=== PATIENT | female | born 1960 | race Caucasian/White ===

== ENCOUNTER 2022-08-02 14:05 | Outpatient (CLI) | payer OTHER ==
--- NOTE | 2022-08-06 12:55 | Mammography Report ---
BILATERAL DIGITAL SCREENING MAMMOGRAM 3D/2D: 08/02/2022 CLINICAL: Routine screening. Comparison is made to exams dated: 05/17/2020 mammogram and 05/03/2020 mammogram - [facility]. There are scattered areas of fibroglandular density in both breasts (category b / 25%-50% glandular t issue). No significant masses, calcifications, or other findings are seen in either breast. There has been no significant interval change. IMPRESSION: NEGATIVE There is no mammographic evidence of malignancy. A 1 year screening mammogram is recommended. Based on the Tyrer Cuzick model (a risk assessment model) the patients lifetime risk is 6.9% and her 10 year risk is 2.9%. According to the ACR, ACS, and NCCN guidelines, an annual breast MRI exam tika g with mammogram is recommended if the patients lifetime risk is 20% or greater. This exam was interpreted at Station ID: [id number]. NOTE: For mammograms, a report in lay terms will be sent to the patient. Approximately 15% of breast malignancies will not be visualized mammographically. In the management of a palpable breast mass, a negative mammogram must not discourage biopsy of a clinically suspicious lesion. Electronically Signed By: Jose Miguel cisneros/sami:08/05/2022 17:56:39 letter sent: No_Letter ACR BI-RADS Category 1: Negative 3341F PARENCHYMAL PATTERN: (A) - The breast(s) demonstrate(s) scattered fibroglandular densities. BI-RADS CATEGORY: (1) - 1 Mammogram [id number] 1 year screening LATERALITY: (B)
== END 2022-08-02 14:06 | disposition home or self-care (01) ==
LOC: DI 14:05
PROVIDERS: ATTEND Internal Medicine
DX: Z12.31 Encounter for screening mammogram for malignant neoplasm of breast (principal)

== ENCOUNTER 2022-08-02 14:05 | Outpatient (CLI) | payer OTHER ==
--- NOTE | 2022-08-02 16:48 | XRAY Report ---
PROCEDURE: Knee 3 View RT INDICATIONS: PAIN IN RIGHT KNEE TECHNIQUE: 3 views of the right knee(s) were acquired. COMPARISON: None. FINDINGS: Bones: No fractures or dislocations. No suspicious bony lesions. Moderate tricompartmental periar ticular osteophyte formation. Severe medial compartment narrowing. Soft tissues: No knee joint effusion. No suspicious soft tissue calcifications or masses. IMPRESSION: Osteoarthritis with medial compartment narrowing. No acute fracture. No osseous lesion. If symptoms a nd/or clinical suspicion for pathology continue, further assessment with repeat plain films, or advan quique imaging (e.g., CT, MRI, or bone scan) is recommended for further assessment. Reviewed by: Jono Domingo MD on 08/02/2022 4:47 PM PDT Approved by: Jono Domingo MD on 08/02/2022 4:47 PM PDT Station ID: [id number]
== END 2022-08-02 14:06 | disposition home or self-care (01) ==
LOC: DI 14:05
PROVIDERS: ATTEND Internal Medicine
DX: M17.11 Unilateral primary osteoarthritis, right knee (principal)

== ENCOUNTER 2022-09-09 08:00 | Outpatient (CLI) | payer OTHER ==
--- NOTE | 2022-09-09 14:58 | XRAY Report ---
PROCEDURE: Knee 3 View RT INDICATIONS: RIGHTK NEE PAIN TECHNIQUE: 3 views of the right knee(s) were acquired. No lateral view was acquired. COMPARISON: 08/02/2022 FINDINGS: Bones: No acute fracture or dislocation. Chronic, moderate medial compartment joint space loss and m ild medial and patellofemoral compartment osteophytosis. Soft tissues: . No suspicious soft tissue calcifications or masses. IMPRESSION: 1.No visible subacute fracture. 2. Moderate medial and mild patellofemoral compartment osteoarthritic changes, stable compared to the prior study. Reviewed by: Triny Dubon MD on 09/09/2022 1:57 PM OZZIE Approved by: Triny Dubon MD on 09/09/2022 1:57 PM OZZIE Station ID: [id number]
== END 2022-09-09 23:59 | disposition home or self-care (01) ==
LOC: DI.WOS 08:00
PROVIDERS: ATTEND Physician Assistant Surgical
DX: M17.11 Unilateral primary osteoarthritis, right knee (principal)

== ENCOUNTER 2022-11-29 12:32 | Outpatient (CLI) | payer OTHER ==
--- NOTE | 2022-11-29 16:11 | Ultrasound Report ---
PROCEDURE: Abdomen Limited INDICATIONS: LUMP ON SIDE TECHNIQUE: Real-time focused scanning was performed of the abdomen, with image documentation. COMPARISONS: None. FINDINGS: Ultrasound was performed in the area of interest. In the area of interest, there is a 3.7 x 3.3 x 1.7 cm isoechoic subcutaneous mass, correlating with the palpable abnormality. It is most likely a lipom a. IMPRESSION: 1. The palpable abnormality correlates with a lipoma. If there is focal pain/tenderness or rapid grow th, a liposarcoma is a differential diagnosis, and CT or MRI would be indicated for further evaluatio n. Reviewed by: Jasmyn Wen MD on 11/29/2022 4:10 PM PDT Approved by: Jasmyn Wen MD on 11/29/2022 4:10 PM PDT Station ID: [id number]
--- NOTE | 2022-11-29 16:20 | Ultrasound Report ---
PROCEDURE: Pelvic w/Transvaginal INDICATIONS: ABN VAG BLEED, LUMP ON SIDE TECHNIQUE: Real-time scanning was performed of the pelvic organs, with image documentation. Additional endovagi nal scanning was necessary due to incomplete visualization of the adnexal and endometrial structures by transabdominal scanning. COMPARISON: None. FINDINGS: Uterus: Uterus is anteverted and measuring 12.6 x 5.2 x 6.9 cm. The myometrium is heterogeneous. T he endometrium measures 1.8.4 mm in combined thickness. Ovaries: The right ovary measures 3.1 x 2.1 x 1.8 cm, with a calculated ovarian volume of 5.9 cc. T he left ovary measures 3.9 x 2.9 x 3.3 cm, with a calculated ovarian volume of 19.6 cc. The ovaries have a normal sonographic appearance. There is a 1.5 x 1.8 x 1.6 m cyst in the right ovary. A 2.1 x 2 .7 x 2.5 cm cyst is seen in the left ovary. Less than 12 follicles can be seen in each ovary. No adn exal masses are seen. No cystic lesions measuring greater than 3 cm. Other: No pathologic free abdominal or pelvic fluid. IMPRESSION: 1. Thickened endometrium. In this patient with postmenopausal bleeding, endometrial cancer needs to b e excluded. Recommend endometrial sampling. 2. Heterogeneous myometrium. This finding can be associated with adenomyosis. 3. Bilateral ovarian cysts. Recommend follow-up ultrasound. Reviewed by: Jasmyn Wen MD on 11/29/2022 4:18 PM PDT Approved by: Jasmyn eWn MD on 11/29/2022 4:18 PM PDT Station ID: [id number]
== END 2022-11-29 12:33 | disposition home or self-care (01) ==
LOC: DI 12:32
PROVIDERS: ATTEND Internal Medicine
DX: N93.9 Abnormal uterine and vaginal bleeding, unspecified (principal); R93.89 Abnormal findings on diagnostic imaging of other specified body structures; N83.202 Unspecified ovarian cyst, left side; N83.201 Unspecified ovarian cyst, right side; L98.8 Other specified disorders of the skin and subcutaneous tissue

== ENCOUNTER 2023-02-18 08:45 | Outpatient (CLI) | payer OTHER ==
--- NOTE | 2023-02-18 14:00 | XRAY Report ---
PROCEDURE: Knee 4 View LT INDICATIONS: LEFT KNEE PAIN TECHNIQUE: 3 views of the knee was obtained. COMPARISON: None FINDINGS: Bones: No fractures or dislocations. No suspicious bony lesions. Moderate medial compartment joint space narrowing without remodeling. Patellofemoral joint space narrowing noted as well. No joint effu danni. Soft tissues: No knee joint effusion. No suspicious soft tissue calcifications or masses. IMPRESSION: Moderate joint space and narrowing without osteophyte, medial compartment and patellofemoral joint. Reviewed by: Jeff Le MD on 02/18/2023 12:59 PM [place] Approved by: Jeff Le MD on 02/18/2023 12:59 PM [place] Station ID: [id number]
== END 2023-02-18 23:59 | disposition home or self-care (01) ==
LOC: DI.WOS 08:45
PROVIDERS: ATTEND Physician Assistant Surgical
DX: M17.12 Unilateral primary osteoarthritis, left knee (principal)

== ENCOUNTER 2023-07-31 08:29 | Day surgery (SDC) | payer OTHER ==
[2023-07-31] MEDS: ACETAMINOPHEN 325 MG TABLET PO ONE (08:50)
--- NOTE | 2023-07-31 09:08 | ANESTHESIA ---
Pre-Anesthesia VS, & Labs - Diagnosis thickened endometrium - Procedure hysteroscopy D&C Vital Signs: Temp Pulse Resp BP Pulse Ox O2 Flow Rate 36.4 C L 82 18 134/76 H 98 07/31/23 08:54 07/31/23 08:54 07/31/23 08:54 07/31/23 08:54 07/31/23 08:54 Height: 5 ft 5 in Weight (kg): 160 kg Body Mass Index: 58.6 BMI Classification: Morbidly Obese - NPO >8 hours - Is Patient ?: No - Lab Results Lab results reviewed: Yes Home Medications and Allergies Home Medications: Ambulatory Orders Aspirin [[place] Aspirin] 81 mg PO HS 07/30/23 Escitalopram [Lexapro] 20 mg PO HS 07/30/23 Lisinopril [Zestril] 10 mg PO HS 07/30/23 Metoprolol Tartrate [Lopressor] 50 mg PO HS 07/30/23 traMADol [Ultram] 1 - 2 tab PO PRN PRN MDD 100mg 07/30/23 Aspirin [[place] Aspirin] 81 mg PO HS 07/30/23 Escitalopram [Lexapro] 20 mg PO HS 07/30/23 Lisinopril [Zestril] 10 mg PO HS 07/30/23 Metoprolol Tartrate [Lopressor] 50 mg PO HS 07/30/23 traMADol [Ultram] 1 - 2 tab PO PRN PRN MDD 100mg 07/30/23 Allergies/Adverse Reactions: Allergies Allergy/AdvReac Type Severity Reaction Status Date / Time No Known Drug Allergies Allergy Verified 07/30/23 14:20 Anes History & Medical History - Anesthetic History Anesthesia Complications: reports: No previous complications Family history of Anesthesia Complications: Denies Family history of Malignant Hyperthermia: Denies - Medical History Cardiovascular: reports: Hypertension, Atrial fibrillation, Arrhythmia Pulmonary: reports: None Gastrointestinal: reports: None Urinary: reports: Renal insuffiency Musculoskeletal: reports: Other Endocrine/Autoimmune: reports: None Skin: reports: None - Surgical History Cardiothoracic: reports: Other Exam General: Alert, Oriented x3, Cooperative Dental: WNL, Other (Left upper prepared for implants) Mouth Openin Fingerbreadth Neck Mobility: Normal Mallampati classification: II Thyromental Distance: 4-6 cm Respiratory: Lungs clear, Normal breath sounds, No respiratory distress, Decreased breath sounds Cardiovascular: Regular rate, Other (hx AF with cardioversions) Neurological: Normal speech Mental/Cognitive Status: Alert/Oriented X3, Normal for patient Cognitive Status: Within normal limits Plan Anesthesia Type: General Consent for Procedure(s) Verified and Reviewed: Yes Code Status: Attempt Resuscitation ASA classification: 3-Severe systemic disease Is this case an emergency?: No
[2023-07-31] MEDS: LACTATED RINGERS 1,000 ML IV ONE ×2 (09:11→10:59)
[2023-07-31] MEDS ORDERED: METOCLOPRAMIDE 10 MG/2 ML VIAL IVP PRN (09:24)
[2023-07-31] MEDS ORDERED: ATROPINE ABBOJECT 1 MG/10 ML SYRINGE IVP PRN (09:24)
[2023-07-31] MEDS ORDERED: ONDANSETRON 4 MG/2 ML VIAL IVP PRN (09:24)
[2023-07-31] MEDS ORDERED: ePHEDrine 50 MG/ML VIAL IVP PRN (09:24)
[2023-07-31] MEDS ORDERED: fentaNYL 100 MCG/2 ML VIAL IVP PRN (09:24)
[2023-07-31] MEDS ORDERED: NALOXONE 0.4 MG/ML VIAL IVP PRN (09:24)
[2023-07-31] MEDS ORDERED: HYDROmorphone 0.5 MG/0.5 ML SYRINGE IVP PRN (09:24)
[2023-07-31] MEDS ORDERED: MORPHINE 2 MG/ML CARPUJECT IVP PRN (09:24)
[2023-07-31] MEDS ORDERED: PROPOFOL 200 MG/20 ML VIAL IVP ONE ×2 (09:25→10:39)
[2023-07-31] MEDS ORDERED: ROCURONIUM 50 MG/5 ML VIAL ONE (09:25)
[2023-07-31] MEDS ORDERED: MIDAZOLAM 2 MG/2 ML VIAL ONE (09:25)
[2023-07-31] MEDS ORDERED: LIDOCAINE-PF 2% 10 ML AMP SUBQ ONE ×2 (09:25→10:44)
[2023-07-31] MEDS ORDERED: ALBUTEROL 6.7 GM INHALER INH ONE (09:54)
[2023-07-31] MEDS ORDERED: LACTATED RINGERS 1,000 ML IV SCH (10:00)
[2023-07-31] MEDS ORDERED: ONDANSETRON 4 MG/2 ML VIAL ONE (10:01)
[2023-07-31] MEDS ORDERED: DEXAMETHASONE 4 MG/ML VIAL ONE (10:01)
[2023-07-31] MEDS ORDERED: SUGAMMADEX 200 MG/2 ML VIAL IVP ONE (10:09)
[2023-07-31] MEDS ORDERED: traMADol 50 MG TABLET PO PRN (10:50)
--- NOTE | 2023-07-31 10:54 | OPERATIVE REPORT ---
Operative Report - General Procedure Date: 07/31/23 Planned Procedure: Hysteroscopy D&C Pre-Op Diagnosis: post menopausal bleeding, abnormal ultrasound of uterus Procedure Performed: same Post Op Diagnosis: same - Procedure Note Primary Surgeon: Amy Galeas MD Anesthesia Provider: Lion Cordon CRNA Anesthesia Technique: General ET tube Pathology: endometrial curettings IV Fluids (mL): 500 Estimated Blood Loss (mL): 20 Urine Output (mL): 0 Indications: post menopausal bleeding, bmi 58. abnormal ultrasound of uterus. biopsy in fall was benign. lining is much thicker now. Findings: uterus with mass inside. hard to see entire cavity, scope is not long enough. Complications: none - Other Other Information/Narrative: consents reviewed and signed. pateint brought to OR. ETT placed. legs in Trey type stirrups. normal prep. time out done. drapes placed. Scope primed. speculum placed. cervix small, no lesions, grasped with tenaculum. dilated to allow 6 mm scope to pass. hysteroscope placed and cavity assessed. mass arising from posterior uterus in lower part of cavity. hard to see around it. Myosure Reach used to remove in part. unable to remove entirely. unable to reach past it as scope was not long enough to go deep enough due to external adipose. Sharp curettage done prior to Myosure but no significant tissue came out. I did what I could to clean the cavity. Instruments removed. deficit: 300 counts correct.
[2023-07-31 11:25] LABS: HCT - HEMATOCRIT 41.8 % (37.0-47.0); HGB - HEMOGLOBIN 13.2 g/dL (12.0-16.0); MEAN CORPUSCULAR HEMOGLOBIN 30.9 pg (27.0-31.0); MEAN CORPUSCULAR HGB CONC 31.6 g/dL (32.0-36.0); MEAN CORPUSCULAR VOLUME 97.9 fL (81.0-99.0); MEAN PLATELET VOLUME 9.4 fL (7.9-10.8); RED BLOOD COUNT 4.27 10^6/uL (4.20-5.40); RED CELL DISTRIBUTION WIDTH 16.2 % (12.0-15.0); WHITE BLOOD COUNT 7.3 x10^3/uL (4.8-10.8)
[2023-07-31] MEDS ORDERED: KETOROLAC 15 MG/ML VIAL ONE (11:26)
[2023-07-31 11:47] LABS: ALBUMIN 3.9 g/dL (3.2-5.5); ALBUMIN/GLOBULIN RATIO 1.5 (1.0-2.2); CALCIUM 9.3 mg/dL (8.5-10.3); CREATININE 1.4 mg/dL (0.6-1.3); POTASSIUM 4.7 mmol/L (3.5-4.5); TOTAL PROTEIN 6.5 g/dL (6.4-8.9)
[2023-07-31] MEDS ORDERED: KETOROLAC 30 MG/ML VIAL IVP PRN (11:50)
[2023-07-31 12:08] VITALS: O2SAT 94
--- NOTE | 2023-07-31 12:17 | ANESTHESIA POST OP EVALUATION ---
Anesthesia Post Eval - Post Anesthesia Eval Vitals: Last Vital Signs Temp 36.3 C L 07/31/23 11:52 Pulse 64 07/31/23 12:07 Resp 18 07/31/23 12:07 BP 135/73 H 07/31/23 12:07 Pulse Ox 94 07/31/23 12:07 O2 Flow Rate CV Function Including HR & BP: Stable Pain Control: Satisfactory Nausea & Vomiting: Negative Mental Status: Baseline Respiratory Status: Airway Patent Hydration Status: Satisfactory Anesthesia Complications: None
[2023-07-31 12:27] VITALS: BP 167/53
[2023-07-31 13:50] LABS: ESTIMATED AVERAGE GLUCOSE 111 mg/dL (70-100); HEMOGLOBIN A1c% 5.5 % (4.27-6.07)
== END 2023-07-31 08:30 | disposition home or self-care (01) ==
LOC: SDS 08:29
PROVIDERS: ATTEND Obstetrics & Gynecology
PROC: 0UDB8ZX Extraction of Endometrium, Via Natural or Artificial Opening Endoscopic, Diagnostic (ICD-10-PCS; principal; 2023-07-31 09:30)
DX: N85.02 Endometrial intraepithelial neoplasia [EIN] (principal); N95.0 Postmenopausal bleeding; I12.9 Hypertensive chronic kidney disease with stage 1 through stage 4 chronic kidney disease, or unspecified chronic kidney disease; N18.9 Chronic kidney disease, unspecified; E66.01 Morbid (severe) obesity due to excess calories; Z68.43 Body mass index [BMI] 50.0-59.9, adult; Z79.82 Long term (current) use of aspirin; Z79.899 Other long term (current) drug therapy; Z90.49 Acquired absence of other specified parts of digestive tract; Z96.641 Presence of right artificial hip joint
CPT/HCPCS: 36415; 58558; 80053; 83036; 85027; A9270; J7120; J7613